=== PATIENT | female | born 1950 | race Caucasian/White ===

== ENCOUNTER 2016-12-17 11:16 | Inpatient (IN) | payer OTHER ==
[~2016-12-17] VITALS: Ht 162.6 cm; Wt 120.0 kg
[2016-12-17] MEDS ORDERED: ALBUT/IPRATROP 3MG/0.5MG NEB 3 ML VIAL INH ONE (11:30)
[2016-12-17] MEDS ORDERED: MoRPHine SULFATE 10 MG/ML CARP/VIAL IV STA (11:32)
[2016-12-17] MEDS ORDERED: ONDANSETRON INJ 2 MG/ML 2 ML VIAL IV STA (11:32)
[2016-12-17 11:38] VITALS: Ht 162.6 cm; Wt 120.0 kg
[2016-12-17 11:49] LABS: BASO % 0.9 %; BASO ABS # 0.04 K/uL (0-0.2); COMPLETE YES; EOS % 0.4 %; IG% 0.2 %; LYMPH % 21.8 %; LYMPH ABS # 0.99 K/uL (1.2-3.4); MEAN CORPUSCULAR HEMOGLOBIN 32.8 pg (25-34); MEAN CORPUSCULAR HGB CONC 33.5 g/dl (32-36); MEAN PLATELET VOLUME 11.6 fL (7.4-10.4); MONO % 7.7 %; PLATELET COUNT 113 K/uL (130-400); RED BLOOD COUNT 4.08 M/uL (4.2-5.4); WHITE BLOOD COUNT 4.54 K/uL (4.8-10.8)
--- NOTE | 2016-12-17 11:53 | DIAGNOSTIC IMAGING REPORT ---
CHEST ONE VIEW PORTABLE CLINICAL HISTORY: Shortness of breath COMPARISON STUDY: No previous studies for comparison. FINDINGS: The heart is mildly enlarged. There is central vascular prominence. There are left basal airspace opacities (atelectatic versus inflammatory). Clinical and radiographic follow-up is recommended.[ IMPRESSION: 1. Cardiomegaly and mild central pulmonary vascular congestion 2. Left lower lobe airspace opacities (pneumonia versus atelectasis). Clinical and radiographic follow-up is recommended Electronically signed by: Edy Hernandez M.D. 12/17/2016 11:50 AM Dictated Date/Time: 12/17/2016 11:49 AM
[2016-12-17] MEDS ORDERED: FURO-85 PO (12:01)
[2016-12-17] MEDS ORDERED: ESOM20CA PO (12:01)
[2016-12-17] MEDS ORDERED: CLR10 PO (12:01)
[2016-12-17] MEDS ORDERED: CYAN10005 PO (12:01)
[2016-12-17] MEDS ORDERED: AMLO-110 PO (12:01)
[2016-12-17] MEDS ORDERED: RANI150T3 PO (12:01)
[2016-12-17] MEDS ORDERED: ASPI-461 PO (12:01)
[2016-12-17] MEDS ORDERED: LEVO100T7 PO (12:01)
[2016-12-17] MEDS ORDERED: METF500T5 PO (12:01)
[2016-12-17] MEDS ORDERED: VNTHFA/IN INH (12:01)
[2016-12-17] MEDS ORDERED: LOSA1TAB38 PO (12:01)
[2016-12-17] MEDS ORDERED: CHOL2000 PO (12:01)
[2016-12-17] MEDS ORDERED: EFF75 PO (12:01)
[2016-12-17] MEDS ORDERED: HYDR25TA4 PO (12:01)
[2016-12-17] MEDS ORDERED: CALC500C70 PO (12:01)
[2016-12-17] MEDS ORDERED: CINN1CAP2 PO (12:01)
[2016-12-17 12:02] VITALS: PULSE 89; O2SAT 92
[2016-12-17 12:04] LABS: ALT/SGPT 43 U/L (12-78); AST/SGOT 35 U/L (15-37); BLOOD UREA NITROGEN 15 mg/dl (7-18); BUN/CREATININE RATIO 18.2 (10-20); CALCIUM 7.5 mg/dl (8.5-10.1); CARBON DIOXIDE 23 mmol/L (21-32); CHLORIDE 109 mmol/L (98-107); CREATININE 0.83 mg/dl (0.60-1.20); GLUCOSE 220 mg/dl (70-99); POTASSIUM 3.3 mmol/L (3.5-5.1); SODIUM 141 mmol/L (136-145)
[2016-12-17 12:06] LABS: URINE APPEARANCE CLEAR (CLEAR); URINE BILIRUBIN NEG (NEG); URINE COLOR YELLOW; URINE NITRITE POS (NEG); URINE SPECIFIC GRAVITY 1.014 (1.000-1.030); UROBILINOGEN NEG (NEG)
[2016-12-17 12:13] LABS: ALB/GLOB RATIO 0.8 (0.9-2); ALKALINE PHOSPHATASE 74 U/L (45-117); CKMB/CK RATIO 1.7 (0-3.0)
[2016-12-17 12:23] LABS: MANUAL MICROSCOPIC REQUIRED? NO; REVIEW REQ? NO
[2016-12-17] MEDS ORDERED: DAPTOmycin IV 600 MG in SODIUM CHLORIDE 0.9% 50ML 50 ML IV STA (12:44)
[2016-12-17] MEDS ORDERED: METRONIDAZOLE 500MG / 100ML NSS IV STA (12:44)
[2016-12-17] MEDS ORDERED: FUROSEMIDE 40 MG/4 ML VIAL IV STA (12:44)
[2016-12-17] MEDS ORDERED: CEFTRIAXONE SOD INJ 1 GM ADDVIAL IV STA (12:44)
[2016-12-17] MEDS ORDERED: POTASSIUM CHLORIDE 10 MEQ TABCR PO SCH (13:25)
[2016-12-17] MEDS ORDERED: CALCIUM GLUCONATE 10% 1,000 MG in SODIUM CHLORIDE 0.9% 50ML 50 ML IV STA (13:29)
[2016-12-17] MEDS ORDERED: ONDANSETRON INJ 2 MG/ML 2 ML VIAL IV PRN (13:30)
[2016-12-17] MEDS ORDERED: ACETAMINOPHEN 325 MG TAB PO PRN (13:30)
[2016-12-17] MEDS ORDERED: IBUP1CAP9 PO (13:47)
[2016-12-17] MEDS ORDERED: NAPR1TAB9 PO (13:47)
[2016-12-17] MEDS ORDERED: POLYSOL OP (13:47)
[2016-12-17] MEDS ORDERED: salonpas patch EXT (13:47)
--- NOTE | 2016-12-17 13:53 | EMERGENCY ROOM VISIT NOTE ---
History Report prepared by Tashi: Paula Green Under the Supervision of: Dr. Derick Reyes M.D. First contact with patient: 11:23 Stated Complaint: SOB, CHEST TIGHTNESS History of Present Illness The patient is a 66 year old female who presents to the Emergency Room with complaints of persistent SOB starting [employer]PER[employer]. The patient just had shoulder surgery at [facility]. She was given Versed and saline block. She woke up from her surgery with SOB and chest pain. She is usually not on oxygen at home. She has never experienced this SOB before. 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 A total of 10 systems reviewed and were otherwise negative. Past Medical & Surgical Medical Problems: (1) Anxiety (2) Depression (3) DM type 2 (diabetes mellitus, type 2) (4) Exercise-induced asthma (5) Gastroparesis (6) GERD (gastroesophageal reflux disease) (7) Hyperlipidemia (8) Hypertension (9) Hypoxia (10) SOB (shortness of breath) Surgical Problems: (1) History of surgical removal of ganglion cyst (2) S/P appendectomy (3) S/P parathyroidectomy (4) S/P tonsillectomy (5) S/P tubal ligation Family History No pertinent family history stated. Social History Marital Status: single Occupation Status: retired Current/Historical Medications Scheduled Amlodipine (Norvasc), 5 MG PO DAILY Aspirin (Aspirin), 81 MG PO DAILY Calcium/Vitamin D (Os-Teodoro 500 Plus D), 1 TAB PO DAILY Cholecalciferol (Vitamin D3), 2,000 UNITS PO DAILY Cinnamon (Cinnamon), 1,000 MG PO DAILY Cyanocobalamin (Vitamin B-12), 1,000 MCG PO DAILY Esomeprazole Magnesium (Nexium), 20 MG PO DAILY Hydrochlorothiazide (Hctz), 25 MG PO DAILY Levothyroxine Sodium (Levothyroxine Sodium), 100 MCG PO DAILY Loratadine (Claritin), 10 MG PO DAILY Losartan Potassium (Cozaar), 100 MG PO DAILY Metformin Hcl Er (Glucophage Er), 500 MG PO DAILY Ranitidine Hcl (Zantac), 150 MG PO DAILY Venlafaxine Hcl (Effexor), 75 MG PO DAILY Scheduled PRN Albuterol Hfa (Ventolin Hfa), 1 PUFFS INH Q4 PRN for SOB/Wheezing Furosemide (Lasix), 20 MG PO DAILY PRN for swelling Ibuprofen (Ibuprofen), 200 MG PO UD PRN for ain Naproxen (Aleve), 220 MG PO UD PRN for Pain Polyvinyl Alcohol-Povidone (Op (Refresh), 1 DROP OP UD PRN for Itching [salonpas patch], 1 PATCH EXT UD PRN for Pain Allergies Coded Allergies: Penicillins (Unverified Allergy, Unknown, ., 12/17/16) Physical Exam Vital Signs Date Time Temp Pulse Resp B/P Pulse Ox O2 Delivery O2 Flow Rate FiO2 12/17/16 12:02 89 28 92 Nasal Cannula 4.0 12/17/16 11:55 93 Nasal Cannula 4.0 12/17/16 11:28 93 Nasal Cannula 4.0 12/17/16 11:28 36.4 90 22 122/78 93 Nasal Cannula 4.0 12/17/16 11:28 93 Nasal Cannula 4.0 12/17/16 11:24 93 Physical Exam GENERAL: Patient is a healthy-appearing well-nourished HEAD: Normocephalic atraumatic EYES: Ocular movements intact pupils equal and react to light OROPHARYNX mucous membranes are moist no exudates present no erythema or edema present NECK: Supple no nuchal rigidity CHEST: Good equal expansion LUNGS: Wheezes bilaterally, appears acutely SOB CARDIAC: Normal S1 and S2 ABDOMEN: Soft nontender no guarding BACK: No CVA tenderness EXTREMITIES: No pain upon palpation normal muscle strength in all groups no clubbing cyanosis or edema NEURO: Patient is following commands is answering questions appropriately. Alert and oriented x3 Cranial Nerves 2-12 grossly intact Medical Decision & Procedures ER Provider Diagnostic Interpretation: X-ray results as stated below per interpretation by me and the radiologist: CHEST ONE VIEW PORTABLE CLINICAL HISTORY: Shortness of breath COMPARISON STUDY: No previous studies for comparison. FINDINGS: The heart is mildly enlarged. There is central vascular prominence. There are left basal airspace opacities (atelectatic versus inflammatory). Clinical and radiographic follow-up is recommended.[ IMPRESSION: 1. Cardiomegaly and mild central pulmonary vascular congestion 2. Left lower lobe airspace opacities (pneumonia versus atelectasis). Clinical and radiographic follow-up is recommended Electronically signed by: Edy Hernandez M.D. 12/17/2016 11:50 AM Dictated Date/Time: 12/17/2016 11:49 AM Laboratory Results 12/17/16 11:40 Red Blood Count 4.08, Mean Corpuscular Volume 98.0, Mean Corpuscular Hemoglobin 32.8, Mean Corpuscular Hemoglobin Concent 33.5, Mean Platelet Volume 11.6, Neutrophils (%) (Auto) 69.0, Lymphocytes (%) (Auto) 21.8, Monocytes (%) (Auto) 7.7, Eosinophils (%) (Auto) 0.4, Basophils (%) (Auto) 0.9, Neutrophils # (Auto) 3.13, Lymphocytes # (Auto) 0.99, Monocytes # (Auto) 0.35, Eosinophils # (Auto) 0.02, Basophils # (Auto) 0.04 12/17/16 11:40 Test 12/17/16 11:40 12/17/16 11:51 White Blood Count 4.54 K/uL (4.8-10.8) Red Blood Count 4.08 M/uL (4.2-5.4) Hemoglobin 13.4 g/dL (12.0-16.0) Hematocrit 40.0 % (37-47) Mean Corpuscular Volume 98.0 fL (80-100) Mean Corpuscular Hemoglobin 32.8 pg (25-34) Mean Corpuscular Hemoglobin Concent 33.5 g/dl (32-36) Platelet Count 113 K/uL (130-400) Mean Platelet Volume 11.6 fL (7.4-10.4) Neutrophils (%) (Auto) 69.0 % Lymphocytes (%) (Auto) 21.8 % Monocytes (%) (Auto) 7.7 % Eosinophils (%) (Auto) 0.4 % Basophils (%) (Auto) 0.9 % Neutrophils # (Auto) 3.13 K/uL (1.4-6.5) Lymphocytes # (Auto) 0.99 K/uL (1.2-3.4) Monocytes # (Auto) 0.35 K/uL (0.11-0.59) Eosinophils # (Auto) 0.02 K/uL (0-0.5) Basophils # (Auto) 0.04 K/uL (0-0.2) RDW Standard Deviation 47.9 fL (36.4-46.3) RDW Coefficient of Variation 13.3 % (11.5-14.5) Immature Granulocyte % (Auto) 0.2 % Immature Granulocyte # (Auto) 0.01 K/uL (0.00-0.02) Anion Gap 9.0 mmol/L (3-11) Est Creatinine Clear Calc Drug Dose 89.0 ml/min Estimated GFR () 85.2 Estimated GFR (Non- 73.5 BUN/Creatinine Ratio 18.2 (10-20) Calcium Level 7.5 mg/dl (8.5-10.1) Magnesium Level 1.7 mg/dl (1.8-2.4) Total Bilirubin 0.7 mg/dl (0.2-1) Aspartate Amino Transf (AST/SGOT) 35 U/L (15-37) Alanine Aminotransferase (ALT/SGPT) 43 U/L (12-78) Alkaline Phosphatase 74 U/L (45-117) Pro-B-Type Natriuretic Peptide 38 pg/ml (0-900) Total Protein 6.9 gm/dl (6.4-8.2) Albumin 3.1 gm/dl (3.4-5.0) Globulin 3.8 gm/dl (2.5-4.0) Albumin/Globulin Ratio 0.8 (0.9-2) Urine Color YELLOW Urine Appearance CLEAR (CLEAR) Urine pH 7.0 (4.5-7.5) Urine Specific [place] 1.014 (1.000-1.030) Urine Protein NEG (NEG) Urine Glucose (UA) 2+ (NEG) Urine Ketones TRACE (NEG) Urine Occult Blood NEG (NEG) Urine Nitrite POS (NEG) Urine Bilirubin NEG (NEG) Urine Urobilinogen NEG (NEG) Urine Leukocyte Esterase NEG (NEG) Urine WBC (Auto) 1-5 /hpf (0-5) Urine RBC (Auto) 0-4 /hpf (0-4) Urine Hyaline Casts (Auto) 1-5 /lpf (0-5) Urine Epithelial Cells (Auto) 5-10 /lpf (0-5) Urine Bacteria (Auto) 4+ (NEG) Labs reviewed by ED physician. Medications Administered Medications (Trade) Dose Ordered Sig/[place]inton Route Start Time Stop Time Status Last Admin Dose Admin Albuterol/ Ipratropium (Duoneb) 12 ml ONE ONCE INH 12/17/16 11:30 12/17/16 11:31 DC 12/17/16 11:30 12 ML Furosemide (Lasix Inj) 40 mg NOW STAT IV 12/17/16 12:44 12/17/16 12:47 DC 12/17/16 13:07 40 MG Metronidazole (Flagyl / Nss) 500 mg NOW STAT IV 12/17/16 12:44 12/17/16 12:47 DC 12/17/16 14:11 500 MG Ceftriaxone Sodium 1 gm 1 gm NOW STAT IV 12/17/16 12:44 12/17/16 12:47 DC 12/17/16 13:07 1 GM Daptomycin/Sodium Chloride (Cubicin IV/Nss 50ml) 62 ml @ 100 mls/hr NOW STAT IV 12/17/16 12:44 12/17/16 13:21 DC 12/17/16 14:58 100 MLS/HR ECG Indication: SOB/dyspnea Rate (beats per minute): 87 Rhythm: normal sinus Findings: no acute ischemic change, no ectopy ED Course 1125: Past medical records reviewed. The patient was evaluated in room A3. A complete history and physical examination was performed. 1130: Duoneb 12 ml INH. 1132: Zofran Inj 4 mg IV, Morphine Sulfate 10 mg IV. 1244: Daptomycin 600 mg/Sodium Chloride 62 ml @ 100 mls/hr IV, Rocephin Inj 1 gm IV, Metronidazole 500 mg IV, Furosemide 40 mg IV. 1253: I discussed the patient's case with Nataliia Marte PA-C [facility], she has agreed to evaluate the patient for further management and care. 1258: Upon reexamination the patient is resting comfortably. I discussed results and treatment plan with the patient. She verbalizes agreement and understanding. I spoke with Nataliia Marte PA-C from the [facility]. The patient will be evaluated for further management. Medical Decision Differential diagnosis: Etiologies such as infections, reactive airway disease, pneumonia, pneumothorax , COPD, CHF, cardiac ischemia, pulmonary embolism, musculoskeletal, gastrointestinal, as well as others were entertained. This is a 66-year-old female who presents emergency department with shortness of breath. The patient's chest x-rays concerning for congestive heart failure. The patient is hypoxic on room air and therefore was placed on oxygen. She was given an hour-long breathing treatment and started on Lasix. Her chest x- rays also concerning for aspiration pneumonia. For this reason the patient was pancultured and started on antibiotics. I did discuss the case with the hospitalist service who agreed to admit the patient. Patient and family were in agreement with the treatment plan. Consults Time Called: 1247 Consulting Physician: GREGORIO Ruiz Hospitalist Returned Call: [phone] I discussed the patient's case with her, she has agreed to evaluate the patient for further management and care. Impression Primary Impression: Congestive heart failure Additional Impression: Pneumonia Scribe Attestation The scribe's documentation has been prepared under my direction and personally reviewed by me in its entirety. I confirm that the note above accurately reflects all work, treatment, procedures, and medical decision making performed by me. Departure Information Dispostion Being Evaluated By Hospitalist Problem Qualifiers Primary Impression: Congestive heart failure Congestive heart failure type: unspecified congestive heart failure type Congestive heart failure chronicity: unspecified congestive heart failure chronicity Qualified Codes: I50.9 - Heart failure, unspecified Additional Impression: Pneumonia Pneumonia type: due to unspecified organism Laterality: unspecified laterality Lung location: unspecified part of lung Qualified Codes: J18.9 - Pneumonia, unspecified organism
[2016-12-17] MEDS ORDERED: GLUCOSE 40% GEL 15 GM TUBE PO PRN (14:00)
[2016-12-17] MEDS ORDERED: GLUCAGON FOR INJ 1 MG VIAL SQ PRN (14:00)
[2016-12-17] MEDS ORDERED: DEXTROSE 50% 50 ML SYR IV PRN (14:00)
[2016-12-17] MEDS ORDERED: GLUCOSE 10 TABS/TUBE PO PRN (14:00)
[2016-12-17 14:10] VITALS: O2SAT 93; BMI 48.9
[2016-12-17] MEDS ORDERED: LEVALBUTEROL/IPRATROPIUM NEB INH PRN ×2 (14:15)
[2016-12-17] MEDS ORDERED: VANCOMYCIN CONSULT ACTIVE PRN (14:49)
[2016-12-17] MEDS ORDERED: CEFEPIME CONSULT ACTIVE PRN ×2 (14:50)
[2016-12-17] MEDS: TRAMADOL HCL 50 MG TAB PO SCH ×2 (15:27→23:14)
[2016-12-17] MEDS ORDERED: MAGNESIUM SULFATE 1GM / D5W 1 GM in PREMIXED IN D5W 100 ML IV SCH (15:30)
[2016-12-17] MEDS ORDERED: OPTIRAY 320 IV PRN (15:30)
[2016-12-17 15:46] VITALS: BP 103/69; PULSE 89; TEMP 36.6; O2SAT 96
[2016-12-17 15:52] LABS: INR 1.1 (0.9-1.1); PROTHROMBIN TIME (PATIENT) 12.3 SECONDS (9.0-12.0)
[2016-12-17] MEDS ORDERED: VANCOMYCIN IV ONE (16:00)
[2016-12-17] MEDS ORDERED: SODIUM CHLORIDE 0.9% IV ONE (16:00)
[2016-12-17] MEDS: ACETAMINOPHEN 500 MG TAB PO SCH ×2 (16:00→20:46)
[2016-12-17 16:20] LABS: CKMB/CK RATIO 1.6 (0-3.0)
--- NOTE | 2016-12-17 16:32 | History and Physical ---
History & Physical Date & Time of Service: Dec 17, 2016 at 14:19 Chief Complaint: Sob, Chest Tightness Primary Care Physician: Chrissy Brown History of Present Illness Source: patient, clinic records This is a 66 year old female with PMH of HTN, HL, DM type 2, hypothyroidism, GERD, gastroparesis, exercise induced asthma, prior smoker, and other problems listed below who presented to the ER for SOB. Today patient underwent left rotator cuff surgery by Dr. Liao with local block and Versed. Upon awakening from surgery patient was reportedly saturating 90% on 10 liters. Pt states she awoke from surgery with SOB, chest tightness, cough "productive" but swallowing the sputum, fatigue. In the ER patient has been saturating mid-90s on 4 liters NC. Patient was treated with hour long Duoneb in ER. She is still feeling SOB and mild tightness across her chest. Before surgery respiratory status was stable without SOB, DORADO, or cough. Recently only complaints were left shoulder pain and sneezing, sinus congestion, itchy eyes attributed to seasonal allergies. Currently the left shoulder pain is rated 5/10. Sensation is still returning to the left fingers. Pt is voiding frequently in ER after receiving 40 mg IV Lasix. She is on PRN Lasix at home for chronic intermittent leg swelling. She denies fever, chills, dizziness, sore throat, palpitations, abdominal pain, N/V/D, dysuria, urgency, calf pain. She does not track her weight. Denies hx of CAD, CHF, valvular heart disease. Last echo was several years ago (for PJC's which resolved, related to anxiety from a life stressor at the time), echo normal per patient, not available in Epic. Past Medical/Surgical History Medical Problems: (1) Anxiety Status: Chronic (2) Depression Status: Chronic (3) DM type 2 (diabetes mellitus, type 2) Status: Chronic (4) Exercise-induced asthma Status: Chronic (5) Gastroparesis Status: Chronic (6) GERD (gastroesophageal reflux disease) Status: Chronic (7) Hyperlipidemia Status: Chronic (8) Hypertension Status: Chronic Surgical Problems: (1) History of surgical removal of ganglion cyst Status: Chronic (2) S/P appendectomy Status: Chronic (3) S/P parathyroidectomy Status: Chronic (4) S/P tonsillectomy Status: Chronic (5) S/P tubal ligation Status: Chronic Family History Cardiac disorder FATHER MOTHER Hypertension FATHER MOTHER Social History Smoking Status: Former Smoker (quit 10 years ago. prior 1 ppd x 25 years. 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) Allergies Coded Allergies: Penicillins (Unverified Allergy, Unknown, ., 12/17/16) Home Medications Scheduled Amlodipine (Norvasc), 5 MG PO DAILY Aspirin (Aspirin), 81 MG PO DAILY Calcium/Vitamin D (Os-Teodoro 500 Plus D), 1 TAB PO DAILY Cholecalciferol (Vitamin D3), 2,000 UNITS PO DAILY Cinnamon (Cinnamon), 1,000 MG PO DAILY Cyanocobalamin (Vitamin B-12), 1,000 MCG PO DAILY Esomeprazole Magnesium (Nexium), 20 MG PO DAILY Hydrochlorothiazide (Hctz), 25 MG PO DAILY Levothyroxine Sodium (Levothyroxine Sodium), 100 MCG PO DAILY Loratadine (Claritin), 10 MG PO DAILY Losartan Potassium (Cozaar), 100 MG PO DAILY Metformin Hcl Er (Glucophage Er), 500 MG PO DAILY Ranitidine Hcl (Zantac), 150 MG PO DAILY Venlafaxine Hcl (Effexor Xr), 75 MG PO DAILY Scheduled PRN Albuterol Hfa (Ventolin Hfa), 1 PUFFS INH Q4 PRN for SOB/Wheezing Furosemide (Lasix), 20 MG PO DAILY PRN for swelling Ibuprofen (Ibuprofen), 200 MG PO UD PRN for ain Naproxen (Aleve), 220 MG PO UD PRN for Pain Polyvinyl Alcohol-Povidone (Op (Refresh), 1 DROP OP UD PRN for Itching [salonpas patch], 1 PATCH EXT UD PRN for Pain Review of Systems Ten point ROS performed with pertinent positives and negatives per HPI. Physical Exam Vital Signs Date Time Temp Pulse Resp B/P Pulse Ox O2 Delivery O2 Flow Rate FiO2 12/17/16 14:02 100 29 150/93 93 Nasal Cannula 4.0 12/17/16 13:21 100 24 109/65 95 Nasal Cannula 4.0 12/17/16 11:55 93 Nasal Cannula 4.0 4/21/17 11:28 93 Nasal Cannula 4.0 12/17/16 11:28 36.4 90 22 122/78 93 Nasal Cannula 4.0 12/17/16 11:28 93 Nasal Cannula 4.0 12/17/16 11:24 93 General Appearance: + obese, + pertinent finding (pleasant alert 66 year old female, mild respiratory distress, dyspneic with conversation and minimal exertion) Head: normocephalic, atraumatic Eyes: normal inspection, PERRL, EOMI ENT: hearing grossly normal, pharynx normal Neck: supple, no JVD, trachea midline Respiratory/Chest: no accessory muscle use, + crackles (left base), + pertinent finding (mild respiratory distress, dyspneic with conversation and minimal exertion. no wheezing at time of my exam. saturating mid-90s on 4 liters at rest but drops to 87% on 4L with minimal exertion) Cardiovascular: regular rate, rhythm, no murmur Abdomen/GI: normal bowel sounds, non tender, soft Extremities/Musculoskelatal: no calf tenderness, + pertinent finding (left shoulder dressing in place. left upper extremity in sling. 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 sensation to light touch grossly intact left hand. all other extremities grossly without motor deficit. ) Skin: normal color, warm/dry Diagnostics Laboratory Results Results Past 24 Hours Test 12/17/16 11:40 12/17/16 11:51 Range/Units White Blood Count 4.54 4.8-10.8 K/uL Red Blood Count 4.08 4.2-5.4 M/uL Hemoglobin 13.4 12.0-16.0 g/dL Hematocrit 40.0 37-47 % Mean Corpuscular Volume 98.0 80-100 fL Mean Corpuscular Hemoglobin 32.8 25-34 pg Mean Corpuscular Hemoglobin Concent 33.5 32-36 g/dl Platelet Count 113 130-400 K/uL Mean Platelet Volume 11.6 7.4-10.4 fL Neutrophils (%) (Auto) 69.0 % Lymphocytes (%) (Auto) 21.8 % Monocytes (%) (Auto) 7.7 % Eosinophils (%) (Auto) 0.4 % Basophils (%) (Auto) 0.9 % Neutrophils # (Auto) 3.13 1.4-6.5 K/uL Lymphocytes # (Auto) 0.99 1.2-3.4 K/uL Monocytes # (Auto) 0.35 0.11-0.59 K/uL Eosinophils # (Auto) 0.02 0-0.5 K/uL Basophils # (Auto) 0.04 0-0.2 K/uL RDW Standard Deviation 47.9 36.4-46.3 fL RDW Coefficient of Variation 13.3 11.5-14.5 % Immature Granulocyte % (Auto) 0.2 % Immature Granulocyte # (Auto) 0.01 0.00-0.02 K/uL Sodium Level 141 136-145 mmol/L Potassium Level 3.3 3.5-5.1 mmol/L Chloride Level 109 98-107 mmol/L Carbon Dioxide Level 23 21-32 mmol/L Anion Gap 9.0 3-11 mmol/L Blood Urea Nitrogen 15 7-18 mg/dl Creatinine 0.83 0.60-1.20 mg/dl Est Creatinine Clear Calc Drug Dose 89.0 ml/min Estimated GFR () 85.2 Estimated GFR (Non- 73.5 BUN/Creatinine Ratio 18.2 10-20 Random Glucose 220 70-99 mg/dl Calcium Level 7.5 8.5-10.1 mg/dl Magnesium Level 1.7 1.8-2.4 mg/dl Total Bilirubin 0.7 0.2-1 mg/dl Aspartate Amino Transf (AST/SGOT) 35 15-37 U/L Alanine Aminotransferase (ALT/SGPT) 43 12-78 U/L Alkaline Phosphatase 74 45-117 U/L Total Creatine Kinase 163 26-192 U/L Creatine Kinase MB 2.7 0.5-3.6 ng/ml Creatine Kinase MB Ratio 1.7 0-3.0 Troponin I < 0.015 0-0.045 ng/ml Pro-B-Type Natriuretic Peptide 38 0-900 pg/ml Total Protein 6.9 6.4-8.2 gm/dl Albumin 3.1 3.4-5.0 gm/dl Globulin 3.8 2.5-4.0 gm/dl Albumin/Globulin Ratio 0.8 0.9-2 Urine Color YELLOW Urine Appearance CLEAR CLEAR Urine pH 7.0 4.5-7.5 Urine Specific [place] 1.014 1.000-1.030 Urine Protein NEG NEG Urine Glucose (UA) 2+ NEG Urine Ketones TRACE NEG Urine Occult Blood NEG NEG Urine Nitrite POS NEG Urine Bilirubin NEG NEG Urine Urobilinogen NEG NEG Urine Leukocyte Esterase NEG NEG Urine WBC (Auto) 1-5 0-5 /hpf Urine RBC (Auto) 0-4 0-4 /hpf Urine Hyaline Casts (Auto) 1-5 0-5 /lpf Urine Epithelial Cells (Auto) 5-10 0-5 /lpf Urine Bacteria (Auto) 4+ NEG Diagnostic Radiology CHEST ONE VIEW PORTABLE CLINICAL HISTORY: Shortness of breath COMPARISON STUDY: No previous studies for comparison. FINDINGS: The heart is mildly enlarged. There is central vascular prominence. There are left basal airspace opacities (atelectatic versus inflammatory). Clinical and radiographic follow-up is recommended.[ IMPRESSION: 1. Cardiomegaly and mild central pulmonary vascular congestion 2. Left lower lobe airspace opacities (pneumonia versus atelectasis). Clinical and radiographic follow-up is recommended EKG NSR, 87 bpm, diffuse T wave flattening, no ST abnormality Impression Assessment and Plan SHORTNESS OF BREATH with HYPOXIA Hypoxic to 87% on 4 liters with minimal exertion Likely due to aspiration pneumonia; mild COPD exacerbation; ruled out for PE with negative CTA chest CXR- cardiomegaly and mild central pulmonary vascular congestion, LLL airspace opacities (pneumonia versus atelectasis), clinical and radiographic f/u recommended CTA chest- No evidence for pulmonary embolus. Mild left basilar atelectatic change. Suboptimal exam due to patient respiratory and somatic motion. Afebrile; no leukocytosis; + tachypnea; + tachycardia; BP stable; lactic acid elevated at 5.3- >check repeat lactic acid Wheezing for ER provider- > resolved with hour long Duoneb Treated in ER with empiric Rocephin, daptomycin (which does not cover pulm sources), and Flagyl Will give dose of vancomycin to cover for MRSA then hold unless MRSA nasal swab positive Change antibiotic regimen to cefepime and Flagyl Follow blood and sputum cultures; check influenza PCR Treated with IV Lasix in ER due to mild CHF findings on x-ray Pro-BNP is WNL; troponin negative No recent echo Consider echo if no improvement with abx Monitor daily weight and I/O Home diuretics held; further IV diuresis as indicated Incentive spirometry ATYPICAL CHEST PAIN Likely due to aspiration pneumonia, mild COPD exacerbation EKG- no ischemic findings Troponin negative x 2 BLLE EDEMA Hold Norvasc Check doppler of bilateral LE HYPOKALEMIA/ HYPOMAGNESEMIA Replace and monitor HYPOCALCEMIA Albumin low; corrected calcium is 8.1 Check ionized calcium in am S/P LEFT SHOULDER ROTATOR CUFF SURGERY 12/17/16 POD #[address] Liao Pain control regimen ordered- scheduled Tylenol 1000 mg and Tramadol 50 mg q8, PRN oxy IR for breakthrough pain Consult Dr. Liao Defer to ortho on safely resuming baby aspirin THROMBOCYTOPENIA Plt 113; plt count normal on last outpatient labs Monitor CBC HYPERTENSION BP is stable Continue losartan, Held HCTZ and PRN furosemide DM TYPE 2 Hold metformin Insulin sliding scale coverage Check A1c HYPOTHYROIDISM Check TSH DYSLIPIDEMIA Not on statin; per clinic records had elevated LFT's on statin in the past DEPRESSION/ ANXIETY Continue Effexor GERD Continue PPI CODE STATUS Full code per my discussion with the patient DVT PROPHYLAXIS SCD's due to recent shoulder surgery 12/17/16 DISPOSITION Admit to telemetry Follows with Chrissy ROCA for primary care Lives alone Patient seen in collaboration with Dr. Glasgow. Please see her addendum. Level of Care Telemetry Resuscitation Status FULL RESUSCITATION VTE Prophylaxis VTE Risk Assessment Done? Y/N: Yes Risk Level: Moderate Given or contraindicated: SCD's, Contraindicated (post-op patient, awaiting surgical clearance for blood thinners ) Note ATTENDING ADDENDUM: Ms. Miranda presents as above with acute onset hypoxia and increased work of breathing with chest pain. She felt well over the past week and denies any symptoms of chest pain, coughing, fevers, chills or feeling ill prior to her elective shoulder surgery this morning. Upon waking up from anesthesia she states she immediately felt very short of breath with a chest tightness that was significant. CXR did show a LLL infiltrate that was either pneumonia vs atelectasis. Aspiration is possible but is more likely on the right, however, I don't see the harm in covering her empirically with broad spectrum abx to cover MRSA and Pseudomonas as she was in a healthcare facility when this occurred. Also, with her degree of hypoxia and tachypnea, I would expect multilobar pneumonia. Ruling out PE is a top priority at this point, with the additional piece that she mentioned her legs and L arm appear more swollen to her than normal. She does have swelling in her lower extremities, so will hold amlodipine. Will also obtain US LE to rule out DVT and allow surgery to examine the L arm in her current post-op state. I don't feel this is sepsis at this point, but inflammation from infection is a possible explanation, so we are keeping that in the differential and blood cultures are pending. Her lactate came back elevated, however, the patient feels much better in her words after receiving the Lasix in the ER, so will hold off on IVF for now. Awaiting CT scan and cont tele monitoring. Pee,
[2016-12-17] MEDS: CEFEPIME IV 2000 MG in DEXTROSE 5% 100ML IV SCH (16:33)
[2016-12-17] MEDS ORDERED: VENL75CA PO (16:57)
[2016-12-17] MEDS ORDERED: LEVALBUTEROL 0.63MG/3 ML NEB INH PRN (17:00)
[2016-12-17] MEDS ORDERED: IPRATROPIUM BROMIDE NEB SOLN 0.02% 2.5 ML VIAL INH PRN (17:00)
[2016-12-17] MEDS: INSULIN ASPART 100 UNITS/ML 3 ML PEN SC SCH ×2 (17:43→20:50)
[2016-12-17] MEDS: POVIDONE SCH (17:44)
[2016-12-17] MEDS: POLYVINYL ALCOHOL SCH (17:44)
--- NOTE | 2016-12-17 17:47 | DIAGNOSTIC IMAGING REPORT ---
CHEST CTA for PULMONARY ARTERIES CT DOSE: 551.57 mGycm HISTORY: Chest pain dyspnea TECHNIQUE: Multiaxial CT images of the chest were performed following the intravenous administration of contrast to evaluate the pulmonary arteries. Maximal intensity projection images were also obtained. COMPARISON STUDY: None. FINDINGS: Compromise exam due to patient respiratory and somatic motion. No major filling defect within the pulmonary arterial structures. Thoracic aorta is negative for aneurysm or dissection. Mild left basilar atelectatic change. IMPRESSION: No evidence for pulmonary embolus. Mild left basilar atelectatic change. Suboptimal exam due to patient respiratory and somatic motion. Electronically signed by: Justus Maradiaga M.D. 12/17/2016 5:45 PM Dictated Date/Time: 12/17/2016 5:43 PM
--- NOTE | 2016-12-17 18:37 | ORTHOPEDIC CONSULTATION ---
DATE OF CONSULTATION: 12/17/2016 HISTORY OF PRESENT ILLNESS: The patient is a 66-year-old female who I performed an elective rotator cuff repair surgery on her left shoulder today at [facility]. She had a traumatic injury to her shoulder, but she also had preexisting impingement. I did a subacromial decompression and a rotator cuff repair. We did not have any difficulty with the surgery, but she had difficulty in her postoperative course with decreased oxygen saturation. She had low O2 sats despite oxygen administration to her, so she was sent to the [facility] and admitted to the PCU. She had a chest x-ray which demonstrates probable atelectasis of her left lung which would likely coincide with having a nerve block on her left shoulder, diaphragmatic elevation and atelectasis which would be more likely than actual infiltrate, though the infiltrate would be possible potentially. Her vital signs are otherwise stable and she is oxygenating 96% on 4 liters of O2. She says she feels much better than she was right after the surgery already. She had a CT ordered to rule out PE which is pending. Her exam demonstrates her nerve block is still dense and she has no pain, and she otherwise has good circulation in the left extremity. She has edema of the arm from fluid extravasation from the arthroscopic surgery which is not unusual with this procedure. ASSESSMENT: Postoperative hypoventilation decreased O2 sat, likely due to complication of being obese and having a nerve block and diaphragmatic elevation. If this is the only issue, this should resolve as nerve block resolves in 16 to 24 hours. Other treatment and diagnoses pending and treatment will be per her medical admitting physician. With regard to treatment of the shoulders, she needs to stay in sling immobilizer, sling can be loosened for elbow range of motion as needed. Dressings should stay in place for 48 hours and then removed and Band-Aids applied.
[2016-12-17 19:55] VITALS: BP 117/72; PULSE 89; TEMP 37.5; O2SAT 95
[2016-12-17] MEDS: IPRATROPIUM BROMIDE NEB SOLN 0.02% 2.5 ML VIAL INH SCH (20:00)
[2016-12-17] MEDS: LEVALBUTEROL 1.25MG/0.5ML NEB INH SCH (20:00)
[2016-12-17 20:11] LABS: INFLUENZA A PCR Neg for Influ A (NEG); INFLUENZA B PCR Neg for Influ B (NEG)
[2016-12-17 20:31] VITALS: PULSE 81; O2SAT 98
[2016-12-17] MEDS: METRONIDAZOLE / NSS 500 MG in PREMIXED NSS 100 ML IV SCH (20:47)
--- NOTE | 2016-12-17 22:55 | DIAGNOSTIC IMAGING REPORT ---
BILATERAL LOWER EXTREMITY VENOUS DOPPLER HISTORY: Pain. Edema. increased swelling in legs per patient, surgery this morning COMPARISON STUDY: None. FINDINGS: There is normal compressibility, flow, and augmentation within the bilateral lower extremity deep venous systems. IMPRESSION: No DVT within the right or left lower extremity. Electronically signed by: Justus Maradiaga M.D. 12/17/2016 10:52 PM Dictated Date/Time: 12/17/2016 10:52 PM
[2016-12-17 23:10] VITALS: BP 134/77; PULSE 84; TEMP 37.3; O2SAT 94
[2016-12-18] VITALS (10 sets, daily range): BP systolic 118–162; BP diastolic 68–77; PULSE 70–86; TEMP 36.4–37; O2SAT 91–97
[2016-12-18] MEDS: OXYCODONE HCL IR 5 MG TAB (IMMEDIATE RELEASE) PO PRN ×3 (01:58→18:24)
[2016-12-18] MEDS: CEFEPIME IV 2000 MG in DEXTROSE 5% 100ML IV SCH (04:27)
[2016-12-18] MEDS: POVIDONE SCH (04:28)
[2016-12-18] MEDS: POLYVINYL ALCOHOL SCH (04:28)
[2016-12-18] MEDS: LEVOTHYROXINE 100 MCG TAB PO SCH (05:50)
[2016-12-18] MEDS: TRAMADOL HCL 50 MG TAB PO SCH ×3 (05:50→21:23)
[2016-12-18] MEDS: METRONIDAZOLE / NSS 500 MG in PREMIXED NSS 100 ML IV SCH (05:51)
[2016-12-18] MEDS: ACETAMINOPHEN 500 MG TAB PO SCH ×3 (05:51→21:24)
[2016-12-18 06:29] LABS: HEMATOCRIT 39.5 % (37-47); MEAN CELL VOLUME 98.3 fL (80-100); MEAN CORPUSCULAR HEMOGLOBIN 32.8 pg (25-34); MEAN CORPUSCULAR HGB CONC 33.4 g/dl (32-36); RED BLOOD COUNT 4.02 M/uL (4.2-5.4)
[2016-12-18 06:31] LABS: ESTIMATED AVERAGE GLUCOSE 160 mg/dl; HA1C FLAG Normal (Normal)
[2016-12-18 06:50] LABS: BUN/CREATININE RATIO 13.2 (10-20); CALCIUM 7.7 mg/dl (8.5-10.1); CREATININE 0.79 mg/dl (0.60-1.20); MAGNESIUM 2.1 mg/dl (1.8-2.4); POTASSIUM 3.5 mmol/L (3.5-5.1)
[2016-12-18 07:07] LABS: PLATELET COUNT 123 K/uL (130-400)
[2016-12-18 07:08] LABS: PLT ESTIMATE DECREASED
[2016-12-18] MEDS: IPRATROPIUM BROMIDE NEB SOLN 0.02% 2.5 ML VIAL INH SCH ×4 (07:44→19:30)
[2016-12-18] MEDS: LEVALBUTEROL 1.25MG/0.5ML NEB INH SCH ×4 (07:45→19:30)
[2016-12-18] MEDS: NON-FORMULARY MEDICATION (Cholecalciferol (Vitamin D3) 2,000 UNITS) PO SCH (09:00)
[2016-12-18] MEDS ORDERED: VENLAFAXINE HCL 50 MG TAB PO SCH (09:00)
[2016-12-18] MEDS ORDERED: NON-FORMULARY MEDICATION (Cinnamon 1,000 MG) PO SCH (09:00)
[2016-12-18] MEDS: LORATADINE 10 MG TAB PO SCH (09:11)
[2016-12-18] MEDS: LOSARTAN POTASSIUM 50 MG TAB PO SCH (09:11)
[2016-12-18] MEDS: CYANOCOBALAMIN 500 MCG TAB (VIT B-12) PO SCH (09:12)
[2016-12-18] MEDS: PANTOprazole SOD 40 MG TAB PO SCH (09:12)
[2016-12-18] MEDS: VENLAFAXINE HCL XR 75 MG CAPXR PO SCH (09:12)
[2016-12-18] MEDS: RANITIDINE HCL 150 MG TAB PO SCH (09:12)
--- NOTE | 2016-12-18 09:12 | Progress Note ---
Orthopedic SOAP Note Subjective Date of Service: Dec 18, 2016. Additional Notes: less SOB, has belly soreness Problem List Medical Problems: (1) Congestive heart failure Status: Acute (2) Pneumonia Status: Acute Objective swelling shoulder decreased ,dressing dry intact ,csm intact in left upper extremity Date Time Temp Pulse Resp B/P Pulse Ox O2 Delivery O2 Flow Rate FiO2 12/18/16 08:22 36.5 81 20 154/68 97 Nasal Cannula 1.0 12/18/16 07:45 80 18 96 Nasal Cannula 3.0 12/18/16 04:00 Nasal Cannula 5.0 12/18/16 03:40 37.0 86 16 137/76 96 Nasal Cannula 3.0 12/18/16 00:01 Nasal Cannula 5.0 12/17/16 23:10 37.3 84 18 134/77 94 Nasal Cannula 3.0 12/17/16 20:31 81 18 98 Nasal Cannula 5.0 12/17/16 20:00 Nasal Cannula 5.0 12/17/16 19:55 37.5 89 16 117/72 95 Nasal Cannula 5.0 12/17/16 16:00 Nasal Cannula 4.0 12/17/16 15:46 36.6 89 20 103/69 96 Nasal Cannula 4.0 12/17/16 14:10 93 Nasal Cannula 4.0 12/17/16 14:02 100 29 150/93 93 Nasal Cannula 4.0 12/17/16 13:21 100 24 109/65 95 Nasal Cannula 4.0 12/17/16 12:02 89 28 92 Nasal Cannula 4.0 12/17/16 11:55 93 Nasal Cannula 4.0 12/17/16 11:28 93 Nasal Cannula 4.0 12/17/16 11:28 36.4 90 22 122/78 93 Nasal Cannula 4.0 12/17/16 11:28 93 Nasal Cannula 4.0 12/17/16 11:24 93 Laboratory Results 24 Hours: Test 12/17/16 11:40 12/17/16 15:20 12/18/16 05:57 White Blood Count 4.54 K/uL Red Blood Count 4.08 M/uL Hemoglobin 13.4 g/dL 13.2 g/dL Hematocrit 40.0 % 39.5 % Mean Corpuscular Volume 98.0 fL Mean Corpuscular Hemoglobin 32.8 pg Mean Corpuscular Hemoglobin Concent 33.5 g/dl Platelet Count 113 K/uL Mean Platelet Volume 11.6 fL Neutrophils (%) (Auto) 69.0 % Lymphocytes (%) (Auto) 21.8 % Monocytes (%) (Auto) 7.7 % Eosinophils (%) (Auto) 0.4 % Basophils (%) (Auto) 0.9 % Neutrophils # (Auto) 3.13 K/uL Lymphocytes # (Auto) 0.99 K/uL Monocytes # (Auto) 0.35 K/uL Eosinophils # (Auto) 0.02 K/uL Basophils # (Auto) 0.04 K/uL Prothromb Time International Ratio 1.1 Prothrombin Time 12.3 SECONDS Assessment atelectasis 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 has abdomina; soreness likely from labored breathing and belly breathing. Plan medical management ,O2 support until breathing improves,management otherwise per medical team.
[2016-12-18] MEDS: CALCIUM 600MG + VIT D 400 IU TAB PO SCH (09:13)
[2016-12-18] MEDS: INSULIN ASPART 100 UNITS/ML 3 ML PEN SC SCH ×4 (09:19→21:00)
--- NOTE | 2016-12-18 09:53 | Progress Note ---
Internal Med Progress Note Date of Service: Dec 18, 2016. Provider Documentation: SUBJECTIVE: Patient is feeling better than yesterday. SOB has improved. Cough has improved. Still has some abdominal soreness, left shoulder surgical site soreness. No fever, chills, wheezing, nausea, vomiting, chest pain, palpitations OBJECTIVE: Vital Signs-as noted below Exam: General-AAOX3, Morbidly obese, no distress Neck-Supple, No JVD Lungs-AEBE decreased, no wheezing, rales, rhonchi Heart-S1, S2 normal, no murmurs Abdomen-Soft, non tender, non distended, BS present, morbidly obese + Extremities-Trace edema bilaterally in B/L lower extremities, Left upper extremity- left shoulder surgery sling + Neuro-Grossly no focal deficits. Limited left upper extremity exam . Lab data as noted below. Diagnostic Radiology CHEST ONE VIEW PORTABLE CLINICAL HISTORY: Shortness of breath COMPARISON STUDY: No previous studies for comparison. FINDINGS: The heart is mildly enlarged. There is central vascular prominence. There are left basal airspace opacities (atelectatic versus inflammatory). Clinical and radiographic follow-up is recommended.[ IMPRESSION: 1. Cardiomegaly and mild central pulmonary vascular congestion 2. Left lower lobe airspace opacities (pneumonia versus atelectasis). Clinical and radiographic follow-up is recommended EKG NSR, 87 bpm, diffuse T wave flattening, no ST abnormality ASSESSMENT & PLAN: Assessment and Plan : POST OPERATIVE HYPOXIA/CHEST TIGHTNESS : Improving Hypoxic to 87% on 4 liters with minimal exertion in the post operative setting. Down to 1 L 97% Likely secondary to post operative status, post anesthesia - left nerve block / left diaphragmatic elevation with morbid obesity, hx of asthma D/D considered: Pneumonia, empirically treating with antibiotics, but less likely to be aspiration pneumonia given left sided atelectasis on CT scan with no clear infiltrate, PE /DVT ruled out by negative CT chest/Venous duplex -On IV Vancomycin, Flagyl, Cefepime x 1 day. Discontinue IV antibiotics today. Received IV lasix in ED yesterday- good urinary output -Incentive spirometry/Ambulation encouraged -Work up- EKG- non specific T wave changes, no significant changes, Troponin x 3 negative -Try to wean off oxygen HYPOKALEMIA/ HYPOMAGNESEMIA -Replaced and monitor S/P LEFT SHOULDER ROTATOR CUFF SURGERY 12/17/16 POD # [address] Liao Pain control regimen ordered- scheduled Tylenol 1000 mg and Tramadol 50 mg q8, PRN oxy IR for breakthrough pain -Consulted Dr. Liao -Defer to ortho on safely resuming baby aspirin THROMBOCYTOPENIA Plt slightly low + ; plt count normal on last outpatient labs -Monitor CBC HYPERTENSION BP is stable -Continue losartan, -Held HCTZ /Norvasc . Will restart lasix 20 mg home dose, Norvasc DM TYPE 2 Hold metformin Insulin sliding scale coverage HBA1C- 7.2 HYPOTHYROIDISM -TSH- normal DYSLIPIDEMIA -Not on statin; per clinic records had elevated LFT's on statin in the past DEPRESSION/ ANXIETY -Continue Effexor GERD -Continue PPI MORBID OBESITY No hx of LOR per patient. Has not had a sleep study done in past CODE STATUS Full code per my discussion with the patient DVT PROPHYLAXIS SCD's due to recent shoulder surgery 12/17/16 DISPOSITION Probable discharge in AM Follows with Chrissy ROCA for primary care Lives alone Encouraged ambulation Vital Signs: Date Time Temp Pulse Resp B/P Pulse Ox O2 Delivery O2 Flow Rate FiO2 12/18/16 08:22 36.5 81 20 154/68 97 Nasal Cannula 1.0 12/18/16 07:45 80 18 96 Nasal Cannula 3.0 12/18/16 04:00 Nasal Cannula 5.0 12/18/16 03:40 37.0 86 16 137/76 96 Nasal Cannula 3.0 12/18/16 00:01 Nasal Cannula 5.0 12/17/16 23:10 37.3 84 18 134/77 94 Nasal Cannula 3.0 12/17/16 20:31 81 18 98 Nasal Cannula 5.0 12/17/16 20:00 Nasal Cannula 5.0 12/17/16 19:55 37.5 89 16 117/72 95 Nasal Cannula 5.0 12/17/16 16:00 Nasal Cannula 4.0 12/17/16 15:46 36.6 89 20 103/69 96 Nasal Cannula 4.0 12/17/16 14:10 93 Nasal Cannula 4.0 12/17/16 14:02 100 29 150/93 93 Nasal Cannula 4.0 12/17/16 13:21 100 24 109/65 95 Nasal Cannula 4.0 12/17/16 12:02 89 28 92 Nasal Cannula 4.0 12/17/16 11:55 93 Nasal Cannula 4.0 12/17/16 11:28 93 Nasal Cannula 4.0 12/17/16 11:28 36.4 90 22 122/78 93 Nasal Cannula 4.0 12/17/16 11:28 93 Nasal Cannula 4.0 12/17/16 11:24 93 Lab Results: Results Past 24 Hours Test 12/17/16 11:40 12/17/16 11:51 12/17/16 15:20 12/17/16 16:16 Range/Units White Blood Count 4.54 4.8-10.8 K/uL Red Blood Count 4.08 4.2-5.4 M/uL Hemoglobin 13.4 12.0-16.0 g/dL Hematocrit 40.0 37-47 % Mean Corpuscular Volume 98.0 80-100 fL Mean Corpuscular Hemoglobin 32.8 25-34 pg Mean Corpuscular Hemoglobin Concent 33.5 32-36 g/dl Platelet Count 113 130-400 K/uL Mean Platelet Volume 11.6 7.4-10.4 fL Neutrophils (%) (Auto) 69.0 % Lymphocytes (%) (Auto) 21.8 % Monocytes (%) (Auto) 7.7 % Eosinophils (%) (Auto) 0.4 % Basophils (%) (Auto) 0.9 % Neutrophils # (Auto) 3.13 1.4-6.5 K/uL Lymphocytes # (Auto) 0.99 1.2-3.4 K/uL Monocytes # (Auto) 0.35 0.11-0.59 K/uL Eosinophils # (Auto) 0.02 0-0.5 K/uL Basophils # (Auto) 0.04 0-0.2 K/uL RDW Standard Deviation 47.9 36.4-46.3 fL RDW Coefficient of Variation 13.3 11.5-14.5 % Immature Granulocyte % (Auto) 0.2 % Immature Granulocyte # (Auto) 0.01 0.00-0.02 K/uL Sodium Level 141 136-145 mmol/L Potassium Level 3.3 3.5-5.1 mmol/L Chloride Level 109 98-107 mmol/L Carbon Dioxide Level 23 21-32 mmol/L Anion Gap 9.0 3-11 mmol/L Blood Urea Nitrogen 15 7-18 mg/dl Creatinine 0.83 0.60-1.20 mg/dl Est Creatinine Clear Calc Drug Dose 89.0 ml/min Estimated GFR () 85.2 Estimated GFR (Non- 73.5 BUN/Creatinine Ratio 18.2 10-20 Random Glucose 220 70-99 mg/dl Calcium Level 7.5 8.5-10.1 mg/dl Magnesium Level 1.7 1.8-2.4 mg/dl Total Bilirubin 0.7 0.2-1 mg/dl Aspartate Amino Transf (AST/SGOT) 35 15-37 U/L Alanine Aminotransferase (ALT/SGPT) 43 12-78 U/L Alkaline Phosphatase 74 45-117 U/L Total Creatine Kinase 163 239 26-192 U/L Creatine Kinase MB 2.7 3.9 0.5-3.6 ng/ml Creatine Kinase MB Ratio 1.7 1.6 0-3.0 Troponin I < 0.015 < 0.015 0-0.045 ng/ml Pro-B-Type Natriuretic Peptide 38 0-900 pg/ml Total Protein 6.9 6.4-8.2 gm/dl Albumin 3.1 3.4-5.0 gm/dl Globulin 3.8 2.5-4.0 gm/dl Albumin/Globulin Ratio 0.8 0.9-2 Urine Color YELLOW Urine Appearance CLEAR CLEAR Urine pH 7.0 4.5-7.5 Urine Specific [place] 1.014 1.000-1.030 Urine Protein NEG NEG Urine Glucose (UA) 2+ NEG Urine Ketones TRACE NEG Urine Occult Blood NEG NEG Urine Nitrite POS NEG Urine Bilirubin NEG NEG Urine Urobilinogen NEG NEG Urine Leukocyte Esterase NEG NEG Urine WBC (Auto) 1-5 0-5 /hpf Urine RBC (Auto) 0-4 0-4 /hpf Urine Hyaline Casts (Auto) 1-5 0-5 /lpf Urine Epithelial Cells (Auto) 5-10 0-5 /lpf Urine Bacteria (Auto) 4+ NEG Prothrombin Time 12.3 9.0-12.0 SECONDS Prothromb Time International Ratio 1.1 0.9-1.1 Activated Partial Thromboplast Time 26.8 21.0-31.0 SECONDS Partial Thromboplastin Ratio 1.0 Lactic Acid Level 5.3 0.4-2.0 mmol/L Thyroid Stimulating Hormone (TSH) 3.060 0.300-4.500 uIu/ml Bedside Glucose 163 70-90 mg/dl Test 12/17/16 17:59 12/17/16 20:07 12/17/16 20:11 12/18/16 05:57 Range/Units Influenza Type A (RT-PCR) Neg for Influ A NEG Influenza Type B (RT-PCR) Neg for Influ B NEG Lactic Acid Level 2.5 0.4-2.0 mmol/L Bedside Glucose 142 70-90 mg/dl White Blood Count 4.60 4.8-10.8 K/uL Red Blood Count 4.02 4.2-5.4 M/uL Hemoglobin 13.2 12.0-16.0 g/dL Hematocrit 39.5 37-47 % Mean Corpuscular Volume 98.3 80-100 fL Mean Corpuscular Hemoglobin 32.8 25-34 pg Mean Corpuscular Hemoglobin Concent 33.4 32-36 g/dl RDW Standard Deviation 49.2 36.4-46.3 fL RDW Coefficient of Variation 13.6 11.5-14.5 % Platelet Count 123 130-400 K/uL Mean Platelet Volume 12.0 7.4-10.4 fL Platelet Estimate DECREASED Sodium Level 139 136-145 mmol/L Potassium Level 3.5 3.5-5.1 mmol/L Chloride Level 104 98-107 mmol/L Carbon Dioxide Level 28 21-32 mmol/L Anion Gap 7.0 3-11 mmol/L Blood Urea Nitrogen 10 7-18 mg/dl Creatinine 0.79 0.60-1.20 mg/dl Est Creatinine Clear Calc Drug Dose 90.1 ml/min Estimated GFR () 90.4 Estimated GFR (Non- 78.0 BUN/Creatinine Ratio 13.2 10-20 Random Glucose 160 70-99 mg/dl Estimated Average Glucose 160 mg/dl Hemoglobin A1c 7.2 4.5-5.6 % Calcium Level 7.7 8.5-10.1 mg/dl Ionized Calcium 1.02 1.12-1.32 mmol/l Magnesium Level 2.1 1.8-2.4 mg/dl Test 12/18/16 06:47 Range/Units Bedside Glucose 139 70-90 mg/dl Microbiology Results 12/17/16 Blood Culture, Received Pending 12/17/16 Blood Culture, Received Pending 12/17/16 MRSA DNA Surveillance Screen - Final, Complete Specimen Negative for MRSA by DNA Probe
[2016-12-19 00:01] VITALS: O2SAT 95
[2016-12-19] MEDS: OXYCODONE HCL IR 5 MG TAB (IMMEDIATE RELEASE) PO PRN ×2 (00:27→09:18)
[2016-12-19 04:00] VITALS: O2SAT 94
[2016-12-19 04:15] VITALS: BP 116/68; PULSE 81; TEMP 36.8; O2SAT 94
[2016-12-19] MEDS: TRAMADOL HCL 50 MG TAB PO SCH (05:39)
[2016-12-19] MEDS: ACETAMINOPHEN 500 MG TAB PO SCH (05:40)
[2016-12-19] MEDS: LEVOTHYROXINE 100 MCG TAB PO SCH (05:41)
[2016-12-19] MEDS: POLYVINYL ALCOHOL SCH (05:41)
[2016-12-19] MEDS: POVIDONE SCH (05:41)
[2016-12-19] MEDS: INSULIN ASPART 100 UNITS/ML 3 ML PEN SC SCH (07:00)
[2016-12-19 07:22] LABS: HEMATOCRIT 40.9 % (37-47); MEAN CELL VOLUME 98.3 fL (80-100); MEAN CORPUSCULAR HEMOGLOBIN 32.2 pg (25-34); MEAN CORPUSCULAR HGB CONC 32.8 g/dl (32-36); MEAN PLATELET VOLUME 11.2 fL (7.4-10.4); PLATELET COUNT 117 K/uL (130-400); RED BLOOD COUNT 4.16 M/uL (4.2-5.4); WHITE BLOOD COUNT 4.65 K/uL (4.8-10.8)
[2016-12-19 07:48] VITALS: PULSE 79; O2SAT 97
[2016-12-19] MEDS: LEVALBUTEROL 1.25MG/0.5ML NEB INH SCH ×2 (07:54→11:37)
[2016-12-19] MEDS: IPRATROPIUM BROMIDE NEB SOLN 0.02% 2.5 ML VIAL INH SCH ×2 (07:54→11:37)
[2016-12-19 07:55] LABS: BUN/CREATININE RATIO 12.9 (10-20); CALCIUM 8.4 mg/dl (8.5-10.1); CREATININE 0.84 mg/dl (0.60-1.20); POTASSIUM 3.5 mmol/L (3.5-5.1)
[2016-12-19 07:59] VITALS: BP 121/76; PULSE 80; TEMP 36.5; O2SAT 95
[2016-12-19] MEDS: RANITIDINE HCL 150 MG TAB PO SCH (08:40)
[2016-12-19] MEDS: VENLAFAXINE HCL XR 75 MG CAPXR PO SCH (08:40)
[2016-12-19] MEDS: LORATADINE 10 MG TAB PO SCH (08:40)
[2016-12-19] MEDS: CYANOCOBALAMIN 500 MCG TAB (VIT B-12) PO SCH (08:40)
[2016-12-19] MEDS: LOSARTAN POTASSIUM 50 MG TAB PO SCH (08:41)
[2016-12-19] MEDS: CALCIUM 600MG + VIT D 400 IU TAB PO SCH (08:42)
[2016-12-19] MEDS: PANTOprazole SOD 40 MG TAB PO SCH (08:42)
[2016-12-19] MEDS: NON-FORMULARY MEDICATION (Cholecalciferol (Vitamin D3) 2,000 UNITS) PO SCH (08:43)
[2016-12-19] MEDS ORDERED: AMLODIPINE BESYLATE 5 MG TAB PO SCH (09:00)
--- NOTE | 2016-12-19 10:11 | Progress Note ---
Internal Med Progress Note Date of Service: Dec 19, 2016. Provider Documentation: SUBJECTIVE: Patient is feeling much better. C/o pain at surgical site. SOB has resolved. No fever, chills, wheezing, nausea, vomiting, chest pain, palpitations Off oxygen. OBJECTIVE: Vital Signs-as noted below Exam: General-AAOX3, Morbidly obese, no distress Neck-Supple, No JVD Lungs-AEBE decreased, no wheezing, rales, rhonchi Heart-S1, S2 normal, no murmurs Abdomen-Soft, non tender, non distended, BS present, morbidly obese + Extremities-Trace edema bilaterally in B/L lower extremities, Left upper extremity- left shoulder surgery sling + Neuro-Grossly no focal deficits. Limited left upper extremity exam . Lab data as noted below. Diagnostic Radiology CHEST ONE VIEW PORTABLE CLINICAL HISTORY: Shortness of breath COMPARISON STUDY: No previous studies for comparison. FINDINGS: The heart is mildly enlarged. There is central vascular prominence. There are left basal airspace opacities (atelectatic versus inflammatory). Clinical and radiographic follow-up is recommended.[ IMPRESSION: 1. Cardiomegaly and mild central pulmonary vascular congestion 2. Left lower lobe airspace opacities (pneumonia versus atelectasis). Clinical and radiographic follow-up is recommended EKG NSR, 87 bpm, diffuse T wave flattening, no ST abnormality ASSESSMENT & PLAN: Assessment and Plan : POST OPERATIVE HYPOXIA/CHEST TIGHTNESS : Resolved Hypoxic to 87% on 4 liters with minimal exertion in the post operative setting. Down to 1 L 97%--> Off oxygen on RA Likely secondary to post operative status, post anesthesia - left nerve block / left diaphragmatic elevation with morbid obesity, hx of asthma D/D considered: Pneumonia, empirically treating with antibiotics, but less likely to be aspiration pneumonia given left sided atelectasis on CT scan with no clear infiltrate, PE /DVT ruled out by negative CT chest/Venous duplex -On IV Vancomycin, Flagyl, Cefepime x 1 day. Discontinue IV antibiotics after 24 hours. Received IV lasix in ED yesterday with good urinary output -Incentive spirometry/Ambulation encouraged -Work up- EKG- non specific T wave changes, no significant changes, Troponin x 3 negative HYPOKALEMIA/ HYPOMAGNESEMIA -Replaced and resolved S/P LEFT SHOULDER ROTATOR CUFF SURGERY 12/17/16 POD # [address] Liao Pain control regimen ordered- scheduled Tylenol 1000 mg and Tramadol 50 mg q8, PRN oxy IR for breakthrough pain -Consulted Dr. Liao -Defer to ortho on safely resuming baby aspirin THROMBOCYTOPENIA Plt slightly low + ; plt count normal on last outpatient labs -Monitor CBC HYPERTENSION BP is stable -Continue losartan, -Held HCTZ /Norvasc . Will restart lasix 20 mg home dose, Norvasc DM TYPE 2 Hold metformin Insulin sliding scale coverage HBA1C- 7.2 HYPOTHYROIDISM -TSH- normal DYSLIPIDEMIA -Not on statin; per clinic records had elevated LFT's on statin in the past DEPRESSION/ ANXIETY -Continue Effexor GERD -Continue PPI MORBID OBESITY No hx of LOR per patient. Has not had a sleep study done in past CODE STATUS Full code per my discussion with the patient DVT PROPHYLAXIS SCD's due to recent shoulder surgery 12/17/16 DISPOSITION Okay to discharge today after evaluated by Dr Liao Follows with Chrissy ROCA for primary care Vital Signs: Date Time Temp Pulse Resp B/P Pulse Ox O2 Delivery O2 Flow Rate FiO2 12/19/16 07:59 36.5 80 16 121/76 95 Room Air 12/19/16 07:48 79 16 97 Room Air 12/19/16 04:15 36.8 81 16 116/68 94 Room Air 12/19/16 04:00 94 Room Air 12/19/16 00:01 95 Room Air 12/18/16 23:00 37.0 80 18 143/73 95 Room Air 12/18/16 20:00 96 Room Air 12/18/16 19:45 36.5 75 18 162/77 96 Room Air 12/18/16 19:30 80 18 95 Room Air 12/18/16 16:00 Room Air 12/18/16 15:50 36.4 75 18 119/68 95 Room Air 12/18/16 12:00 Nasal Cannula 1.0 12/18/16 11:52 36.7 70 19 118/68 96 Nasal Cannula 1.0 12/18/16 11:38 81 18 91 Nasal Cannula 1.0 Lab Results: Results Past 24 Hours Test 12/18/16 11:27 12/18/16 16:08 12/18/16 20:14 12/19/16 06:51 Range/Units Bedside Glucose 167 169 140 122 70-90 mg/dl Test 12/19/16 07:05 Range/Units White Blood Count 4.65 4.8-10.8 K/uL Red Blood Count 4.16 4.2-5.4 M/uL Hemoglobin 13.4 12.0-16.0 g/dL Hematocrit 40.9 37-47 % Mean Corpuscular Volume 98.3 80-100 fL Mean Corpuscular Hemoglobin 32.2 25-34 pg Mean Corpuscular Hemoglobin Concent 32.8 32-36 g/dl RDW Standard Deviation 48.6 36.4-46.3 fL RDW Coefficient of Variation 13.6 11.5-14.5 % Platelet Count 117 130-400 K/uL Mean Platelet Volume 11.2 7.4-10.4 fL Sodium Level 137 136-145 mmol/L Potassium Level 3.5 3.5-5.1 mmol/L Chloride Level 102 98-107 mmol/L Carbon Dioxide Level 28 21-32 mmol/L Anion Gap 7.0 3-11 mmol/L Blood Urea Nitrogen 11 7-18 mg/dl Creatinine 0.84 0.60-1.20 mg/dl Est Creatinine Clear Calc Drug Dose 84.1 ml/min Estimated GFR () 83.9 Estimated GFR (Non- 72.4 BUN/Creatinine Ratio 12.9 10-20 Random Glucose 141 70-99 mg/dl Calcium Level 8.4 8.5-10.1 mg/dl
--- NOTE | 2016-12-19 10:14 | Discharge Instructions ---
Discharge Instructions Date of Service Dec 19, 2016. Admission Reason for Admission: Hypoxia, Sob (Shortness Of Breath) Discharge Discharge Diagnosis / Problem: 1. Post operative hypoxia, acute conditions ruled out Discharge Goals Goal(s): Diagnostic testing, Therapeutic intervention Activity Recommendations Activity Limitations: per Instructions/Follow-up section (per ortho instructions) . Instructions / Follow-Up Instructions / Follow-Up MEDICATION CHANGES: -No changes in medications -Pain mx per ortho instructions FOLLOW UP 1. Follow up with Dr Chrissy Brown 12/23/16 at 1:15 PM 2. Follow up with orthopedics as scheduled Current Hospital Diet Patient's current hospital diet: AHA Diet (Heart Healthy), Diabetes Type 2 Diet Discharge Diet Recommended Diet: AHA Diet (Heart Healthy), Low Sodium Diet (2gm Na), Diabetes Type 2 Diet, Low Fat Diet Pending Studies Studies pending at discharge: no Laboratory Results Hemoglobin A1c Test 12/18/16 05:57 Range/Units Estimated Average Glucose 160 mg/dl Hemoglobin A1c 7.2 H 4.5-5.6 % Medical Emergencies . Who to Call and When: Medical Emergencies: If at any time you feel your situation is an emergency, please call 911 immediately. . Non-Emergent Contact Non-Emergency issues call your: Primary Care Provider . . "Provider Documentation" section prepared by Carmencita Redding. . VTE Core Measure Inpt VTE Proph given/why not?: SCD's, Contraindicated (post-op patient, awaiting surgical clearance for blood thinners )
--- NOTE | 2016-12-19 10:19 | Progress Note ---
Orthopedic SOAP Note Subjective Date of Service: Dec 19, 2016. Additional Notes: less SOB but more pain in shoulder today,some arm pain as well Problem List Medical Problems: (1) Congestive heart failure Status: Acute (2) Pneumonia Status: Acute Objective N/V intact incisions benign scant drainage no erythema swelling continues to improve Date Time Temp Pulse Resp B/P Pulse Ox O2 Delivery O2 Flow Rate FiO2 12/19/16 07:59 36.5 80 16 121/76 95 Room Air 12/19/16 07:48 79 16 97 Room Air 12/19/16 04:15 36.8 81 16 116/68 94 Room Air 12/19/16 04:00 94 Room Air 12/19/16 00:01 95 Room Air 12/18/16 23:00 37.0 80 18 143/73 95 Room Air 12/18/16 20:00 96 Room Air 12/18/16 19:45 36.5 75 18 162/77 96 Room Air 12/18/16 19:30 80 18 95 Room Air 12/18/16 16:00 Room Air 12/18/16 15:50 36.4 75 18 119/68 95 Room Air 12/18/16 12:00 Nasal Cannula 1.0 12/18/16 11:52 36.7 70 19 118/68 96 Nasal Cannula 1.0 12/18/16 11:38 81 18 91 Nasal Cannula 1.0 Laboratory Results 24 Hours: Test 12/19/16 07:05 Hematocrit 40.9 % Hemoglobin 13.4 g/dL Assessment atelectasis 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 Plan dressing changed , patient has d/c instructions from [facility]. patient has percocet script and will add celebrex.will do cervical spine workup as out patient.
[2016-12-19] MEDS ORDERED: DOCU-94 PO (10:22)
[2016-12-19] MEDS ORDERED: OXYC-57 PO (10:22)
[2016-12-19] MEDS ORDERED: IBUP1CAP9 PO (10:22)
--- NOTE | 2016-12-19 10:25 | Discharge Summary ---
Discharge Summary Date of Service Dec 19, 2016. Discharge Summary Admission Date: Dec 17, 2016 at 13:20 Discharge Date: Dec 19, 2016 Discharge Disposition: Home Principal Diagnosis: 1. Post operative hypoxia, atelectasis, post anesthesia, morbid obesity 2. S/P Right arthroscopic rotator cuff repair 3. Morbid obesity Secondary Diagnoses/Problems: 1. HTN 2. DM-2 3. Hypothyroidism 4. Dyslipidemia 5. Depression/Anxiety 6. GERD 7. Morbid obesity Procedures: Tele monitoring CT chest CXR IV antibiotics x 24 hours Pain mx per ortho Oxygen, taken off on discharge Consultations: Ortho Pending Studies/Follow-Up: Instructions / Follow-Up Instructions / Follow-Up MEDICATION CHANGES: -No changes in medications -Pain mx per ortho instructions FOLLOW UP 1. Follow up with Dr Chrissy Brown 12/23/16 at 1:15 PM 2. Follow up with orthopedics as scheduled Medication Reconciliation New Medications: Docusate Sodium (Colace) 100 Mg Cap 1 CAP PO BID for 10 Days, #20 CAP Oxycodone/Acetaminophen 5MG/325MG (Percocet 5MG/325MG) Tab 1-2 TABLETS PO Q6 PRN for Pain, #30 TAB Changed Medications: Ibuprofen (Ibuprofen) 200 Mg Cap 200 MG PO DAILY for 30 Days, #30 TAB 2 Refills (Changed from: UD; Removed Reason ; Refills: ) Continued Medications: Albuterol Hfa (Ventolin Hfa) 200 Puffs/98278 Mcg Aers 1 PUFFS INH Q4 PRN for SOB/Wheezing, #1 INHALER Amlodipine (Norvasc) 5 Mg Tab 5 MG PO DAILY, TAB Aspirin (Aspirin) 81 Mg Tab 81 MG PO DAILY Calcium/Vitamin D (Os-Teodoro 500 Plus D) Tab 1 TAB PO DAILY, TAB Cholecalciferol (Vitamin D3) 2,000 Unit Cap 2000 UNITS PO DAILY for 90 Days, CAP 3 Refills Cinnamon (Cinnamon) 500 Mg Cap 1000 MG PO DAILY Cyanocobalamin (Vitamin B-12) 1,000 Mcg Tab 1000 MCG PO DAILY, TAB Esomeprazole Magnesium (Nexium) 20 Mg Capcr 20 MG PO DAILY, CAP Furosemide (Lasix) 20 Mg Tab 20 MG PO DAILY PRN for swelling, TAB Hydrochlorothiazide (Hctz) 25 Mg Tab 25 MG PO DAILY, TAB Levothyroxine Sodium (Levothyroxine Sodium) 100 Mcg Tab 100 MCG PO DAILY, 3 Refills Loratadine (Claritin) 10 Mg Tab 10 MG PO DAILY, TAB Losartan Potassium (Cozaar) 100 Mg Tab 100 MG PO DAILY, TAB Metformin Hcl Er (Glucophage Er) 500 Mg Tab 500 MG PO DAILY, TAB Polyvinyl Alcohol-Povidone (Op (Refresh) 1 Rodolfo Rodolfo 1 DROP OP UD PRN for Itching Ranitidine Hcl (Zantac) 150 Mg Tab 150 MG PO DAILY, TAB Venlafaxine Hcl (Effexor Xr) 75 Mg Cap 75 MG PO DAILY for 30 Days, CAP [salonpas patch] () 1 PATCH EXT UD PRN for Pain Discontinued Medications: Naproxen (Aleve) 220 Mg Tab 220 MG PO UD PRN for Pain, TAB Admission Information HPI (per Admitting provider): This is a 66 year old female with PMH of HTN, HL, DM type 2, hypothyroidism, GERD, gastroparesis, exercise induced asthma, prior smoker, and other problems listed below who presented to the ER for SOB. Today patient underwent left rotator cuff surgery by Dr. Liao with local block and Versed. Upon awakening from surgery patient was reportedly saturating 90% on 10 liters. Pt states she awoke from surgery with SOB, chest tightness, cough "productive" but swallowing the sputum, fatigue. In the ER patient has been saturating mid-90s on 4 liters NC. Patient was treated with hour long Duoneb in ER. She is still feeling SOB and mild tightness across her chest. Before surgery respiratory status was stable without SOB, DORADO, or cough. Recently only complaints were left shoulder pain and sneezing, sinus congestion, itchy eyes attributed to seasonal allergies. Currently the left shoulder pain is rated 5/10. Sensation is still returning to the left fingers. Pt is voiding frequently in ER after receiving 40 mg IV Lasix. She is on PRN Lasix at home for chronic intermittent leg swelling. She denies fever, chills, dizziness, sore throat, palpitations, abdominal pain, N/V/D, dysuria, urgency, calf pain. She does not track her weight. Denies hx of CAD, CHF, valvular heart disease. Last echo was several years ago (for PJC's which resolved, related to anxiety from a life stressor at the time), echo normal per patient, not available in Epic. Physical Exam (per Admitting): General Appearance: + obese, + pertinent finding (pleasant alert 66 year old female, mild respiratory distress, dyspneic with conversation and minimal exertion) Head: normocephalic, atraumatic Eyes: normal inspection, PERRL, EOMI ENT: hearing grossly normal, pharynx normal Neck: supple, no JVD, trachea midline Respiratory/Chest: no accessory muscle use, + crackles (left base), + pertinent finding (mild respiratory distress, dyspneic with conversation and minimal exertion. no wheezing at time of my exam. saturating mid-90s on 4 liters at rest but drops to 87% on 4L with minimal exertion) Cardiovascular: regular rate, rhythm, no murmur Abdomen/GI: normal bowel sounds, non tender, soft Extremities/Musculoskelatal: no calf tenderness, + pertinent finding (left shoulder dressing in place. left upper extremity in sling. 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 sensation to light touch grossly intact left hand. all other extremities grossly without motor deficit. ) Skin: normal color, warm/dry Hospital Course Assessment and Plan : POST OPERATIVE HYPOXIA/CHEST TIGHTNESS : Resolved Hypoxic to 87% on 4 liters with minimal exertion in the post operative setting. Down to 1 L 97%--> Off oxygen on RA Likely secondary to post operative status, post anesthesia - left nerve block / left diaphragmatic elevation with morbid obesity, hx of asthma D/D considered: Pneumonia, empirically treating with antibiotics, but less likely to be aspiration pneumonia given left sided atelectasis on CT scan with no clear infiltrate, PE /DVT ruled out by negative CT chest/Venous duplex -On IV Vancomycin, Flagyl, Cefepime x 1 day. Discontinue IV antibiotics after 24 hours. Received IV lasix in ED yesterday with good urinary output -Incentive spirometry/Ambulation encouraged -Work up- EKG- non specific T wave changes, no significant changes, Troponin x 3 negative HYPOKALEMIA/ HYPOMAGNESEMIA -Replaced and resolved S/P LEFT SHOULDER ROTATOR CUFF SURGERY 12/17/16 POD # [address] Liao Pain control regimen ordered- scheduled Tylenol 1000 mg and Tramadol 50 mg q8, PRN oxy IR for breakthrough pain -Consulted Dr. Liao -Defer to ortho on safely resuming baby aspirin THROMBOCYTOPENIA Plt slightly low + ; plt count normal on last outpatient labs -Monitor CBC HYPERTENSION BP is stable -Continue losartan, -Held HCTZ /Norvasc . Will restart lasix 20 mg home dose, Norvasc DM TYPE 2 Hold metformin Insulin sliding scale coverage HBA1C- 7.2 HYPOTHYROIDISM -TSH- normal DYSLIPIDEMIA -Not on statin; per clinic records had elevated LFT's on statin in the past DEPRESSION/ ANXIETY -Continue Effexor GERD -Continue PPI MORBID OBESITY No hx of LOR per patient. Has not had a sleep study done in past CODE STATUS Full code per my discussion with the patient DVT PROPHYLAXIS SCD's due to recent shoulder surgery 12/17/16 DISPOSITION Okay to discharge today Follows with Chrissy ROCA for primary care Total time spent on discharge = 25 minutes This includes examination of the patient, discharge planning, medication reconciliation, and communication with other providers. Discharge Instructions Activity Recommendations Activity Limitations: per Instructions/Follow-up section (per ortho instructions) . Instructions / Follow-Up Instructions / Follow-Up MEDICATION CHANGES: -No changes in medications -Pain mx per ortho instructions FOLLOW UP 1. Follow up with Dr Chrissy Brown 12/23/16 at 1:15 PM 2. Follow up with orthopedics as scheduled Current Hospital Diet Patient's current hospital diet: AHA Diet (Heart Healthy), Diabetes Type 2 Diet Discharge Diet Recommended Diet: AHA Diet (Heart Healthy), Low Sodium Diet (2gm Na), Diabetes Type 2 Diet, Low Fat Diet Pending Studies Studies pending at discharge: no Laboratory Results Hemoglobin A1c Test 12/18/16 05:57 Range/Units Estimated Average Glucose 160 mg/dl Hemoglobin A1c 7.2 H 4.5-5.6 % Medical Emergencies . Who to Call and When: Medical Emergencies: If at any time you feel your situation is an emergency, please call 911 immediately. . Non-Emergent Contact Non-Emergency issues call your: Primary Care Provider . . "Provider Documentation" section prepared by Carmencita Redding. . VTE Core Measure Inpt VTE Proph given/why not?: SCD's, Contraindicated (post-op patient, awaiting surgical clearance for blood thinners ) <Electronically signed by Carmencita Redding MD> Signed: 12/19/16 1014 Signed: The status of this report is Signed * If report status is Draft, the document has not been finalized by the responsible provider.
[2016-12-19] MEDS ORDERED: NURSING VERBAL MED ORDER ONE (10:30)
[2016-12-19 10:35] VITALS: BP 121/76; PULSE 80; TEMP 36.5; O2SAT 95
[2016-12-19] MEDS ORDERED: CeleBREX 200 MG CAP PO STA (10:35)
== END 2016-12-19 12:50 | disposition home or self-care (01) | DRG 206 ==
LOC: ENRESERVDT → ENRESERVTM → EDBD 11:16 → C.EDA 11:20 → C.2T 13:20
PROVIDERS: ADMIT Hospitalist; ATTEND Internal Medicine
DX: J95.89 Other postprocedural complications and disorders of respiratory system, not elsewhere classified (principal); J98.11 Atelectasis; R09.02 Hypoxemia; I10 Essential (primary) hypertension; E11.9 Type 2 diabetes mellitus without complications; E03.9 Hypothyroidism, unspecified; K21.9 Gastro-esophageal reflux disease without esophagitis; R60.0 Localized edema; E87.6 Hypokalemia; E83.42 Hypomagnesemia; E83.51 Hypocalcemia; D69.6 Thrombocytopenia, unspecified; F32.9 Major depressive disorder, single episode, unspecified; F41.9 Anxiety disorder, unspecified; E66.01 Morbid (severe) obesity due to excess calories; Z82.49 Family history of ischemic heart disease and other diseases of the circulatory system; Z87.891 Personal history of nicotine dependence; Z79.82 Long term (current) use of aspirin; J98.6 Disorders of diaphragm; T41.3X5A Adverse effect of local anesthetics, initial encounter